=== PATIENT | female | born 1950 | race Caucasian/White ===

== ENCOUNTER 2024-05-30 10:20 | Outpatient (CLI) | payer MEDICARE, OTHER, SELFPAY | END 2024-05-30 23:59 | disposition home or self-care (01) | LOC: LAB.DROPOF 06-01 09:17 | PROVIDERS: PCP Nurse Practitioner; Visit Provider Nurse Practitioner | DX: N10 Acute pyelonephritis (principal) | CPT/HCPCS: 87086; 87088; 87186 ==